=== PATIENT | male | born 1955 | race Caucasian/White ===

== ENCOUNTER 2020-05-09 13:33 | Outpatient (REF) | payer OTHER, SELFPAY | END 2020-05-09 13:34 | disposition home or self-care (01) | LOC: HO.LABR 13:33 | PROVIDERS: PCP Hospitalist; Visit Provider Internal Medicine | DX: Z20.828 Contact with and (suspected) exposure to other viral communicable diseases (principal) | CPT/HCPCS: 36415; 87635 ==